=== PATIENT | female | born 1990 | race Caucasian/White ===

== ENCOUNTER 2025-02-17 09:30 | Day surgery (SDC) | payer OTHER ==
[~2025-02-17] VITALS: Ht 172.7 cm; Wt 101.4 kg
[2025-02-17] MEDS: INDOCYANINE GREEN 25 MG VIAL IV ONE (06:00)
[2025-02-17] MEDS: HEPARIN SOD 5000 UNITS/ML 1 ML VIAL/SYRINGE SQ ONE (06:00)
[2025-02-17] MEDS: ceFAZolin SOD 2 GM IV ONCE IV ONE (06:00)
[~2025-02-17 09:30] MED LIST: ALBU8.5H; DULO1CAP6 PO; ERGO500029 PO; ESOM40CA35 PO; LITH1TAB PO; LORA-1041 PO; LURA80TA PO; MECL50TA PO; MIDAZOLAM INJ 2 MG/2 ML VIAL As Ordered ONE; NORE-23 PO; PROP80CA PO; VALI5TAB PO; ZOLP5TAB9 PO
[2025-02-17] MEDS ORDERED: ROCURONIUM BROMIDE 50MG/5ML VIAL As Ordered ONE (09:55)
[2025-02-17] MEDS ORDERED: KETOROLAC 30 MG/ML 1 ML VIAL As Ordered ONE (09:56)
[2025-02-17] MEDS ORDERED: dexAMETHasone 4 MG/ML 1 ML VIAL As Ordered ONE (09:56)
[2025-02-17] MEDS ORDERED: ONDANSETRON 4MG 2ML VIAL As Ordered ONE (09:56)
[2025-02-17] MEDS ORDERED: INDOCYANINE GREEN 25 MG VIAL As Ordered ONE (09:57)
[2025-02-17] MEDS ORDERED: LR 1,000 ML IV SCH (10:05)
[2025-02-17 10:09] LABS: PLATELET COUNT, AUTOMATED 326 10^3/uL (150-450)
[2025-02-17] MEDS ORDERED: SCOPOLAMINE 1MG TRANSDERMAL PATCH TOP ONE (10:10)
[2025-02-17] MEDS ORDERED: ACETAMINOPHEN 1000MG/100ML IV BAG As Ordered ONE (11:01)
[2025-02-17] MEDS ORDERED: SUGAMMADEX SODIUM 200 MG/2 ML VIAL As Ordered ONE (11:44)
[2025-02-17] MEDS ORDERED: HYDROmorphone HCL 2 MG/ML 1 ML VIAL As Ordered ONE (11:48)
[2025-02-17] MEDS: HYDROMORPHONE HCL 0.5 MG/0.5 ML SYRINGE IV PRN (12:33)
[2025-02-17] MEDS: ONDANSETRON 4MG 2ML VIAL IV PRN (12:33)
[2025-02-17 15:25] VITALS: BP 133/71; TEMP 97.7; O2SAT 100
== END 2025-02-17 15:42 | disposition home or self-care (01) ==
LOC: M SDC 09:30
PROVIDERS: ATTEND Surgery
DX: K80.20 Calculus of gallbladder without cholecystitis without obstruction (principal); J45.909 Unspecified asthma, uncomplicated; F17.290 Nicotine dependence, other tobacco product, uncomplicated; K21.9 Gastro-esophageal reflux disease without esophagitis; F31.9 Bipolar disorder, unspecified; F43.10 Post-traumatic stress disorder, unspecified; F41.9 Anxiety disorder, unspecified; Z79.899 Other long term (current) drug therapy; Z88.8 Allergy status to other drugs, medicaments and biological substances; Z88.1 Allergy status to other antibiotic agents; Z90.49 Acquired absence of other specified parts of digestive tract
CPT/HCPCS: 36415; 47562; 81025; 85027; 88304; J0131; J0665; J0690; J1100; J1171; J1885; J2250; J2405; J2550; J2765; J3010; Q9968; S2900